=== PATIENT | male | born 1975 | race Caucasian/White ===

== ENCOUNTER 2016-09-13 09:22 | Emergency (ER) | payer MEDICAID ==
[~2016-09-13] VITALS: Ht 157.5 cm; Wt 73.0 kg
[~2016-09-13 09:22] MED LIST: DIGOXIN PO; FOLI-43 PO; FURO-152 PO; OMEP20CA10 PO; ONDA4TAB5 PO; SIMVASTATIN; THIA100T8 PO; WARFARIN PO
[2016-09-13] MEDS ORDERED: ONDANSETRON HCL 4MG/2ML VIAL IV STA (10:53)
[2016-09-13] MEDS ORDERED: VISCOUS LIDOCAINE 2% 15 ML UDC PO STA (10:53)
[2016-09-13] MEDS ORDERED: MAGNESIUM/ALUMINUM HYDROXIDE/SIMETHICONE 30ML UDC PO STA (10:53)
[2016-09-13] MEDS ORDERED: FAMOTIDINE 20MG/2ML VIAL IV ONE (11:00)
[2016-09-13 11:13] LABS: CLARITY URINE CLEAR (CLEAR); COLOR URINE YELLOW (YELLOW); GLUCOSE URINE NEGATIVE (NEGATIVE); KETONES URINE NEGATIVE (NEGATIVE); LEUKOCYTE ESTERASE URINE NEGATIVE (NEGATIVE); NITRITE URINE NEGATIVE (NEGATIVE); OCCULT BLOOD URINE TRACE (NEGATIVE); PROTEIN URINE 2+ (NEGATIVE); SPECIFIC GRAVITY URINE 1.007 (1.005-1.030); UROBILINOGEN URINE 0.2 E.U./dL (0.2-1.0)
[2016-09-13 11:17] LABS: BASOPHILS % 0.6 % (0.0-2.0); EOSINOPHILS % 2.1 % (0.0-5.0); HEMATOCRIT. 43.6 % (42.0-52.0); LYMPHOCYTES % 10.1 % (20.0-50.0); MEAN CORPUSCULAR HEMOGLOBIN 28.3 pg (28.0-32.0); MEAN PLATELET VOLUME 8.6 fl (7.4-10.4); MONOCYTES % 11.7 % (2.0-8.0); NEUTROPHILS % 75.5 % (40.0-76.0); PLATELET 166 x1000/uL (130-400); RED BLOOD CELL COUNT 4.96 mill/uL (4.7-6.1); RED CELL DISTRIBUTION WIDTH 18.1 % (11.6-14.6)
[2016-09-13 11:34] LABS: CARBON DIOXIDE 27 mEq/L (21-32); CHLORIDE 102 mEq/L (98-107); ETHANOL BLOOD < 10 mg/dL
[2016-09-13 11:43] LABS: *AMPHETAMINES SCREEN URINE NEGATIVE (NEGATIVE); *BARBITURATES SCREEN URINE NEGATIVE (NEGATIVE); *BENZODIAZEPINES SCREEN URINE NEGATIVE (NEGATIVE); *COCAINE SCREEN URINE NEGATIVE (NEGATIVE); CANNABINOID URINE SCREEN NEGATIVE (NEGATIVE); METHADONE URINE SCREEN NEGATIVE (NEGATIVE); OPIATES URINE SCREEN NEGATIVE (NEGATIVE); PHENCYCLIDINE URINE SCREEN NEGATIVE (NEGATIVE)
[2016-09-13 13:17] VITALS: BP 108/63
== END 2016-09-13 13:32 | disposition home or self-care (01) ==
LOC: ER 10:22
DX: K29.70 Gastritis, unspecified, without bleeding (principal); R51 Headache; Z89.9 Acquired absence of limb, unspecified; Z79.01 Long term (current) use of anticoagulants
CPT/HCPCS: 36415; 80053; 80305; 81001; 83690; 85025; 96374; 96375; 99284; G0482; J2405; J3490; Z7610

== ENCOUNTER 2016-10-12 09:41 | Emergency (ER) | payer MEDICAID ==
[~2016-10-12] VITALS: Ht 172.7 cm; Wt 75.0 kg
[2016-10-12] MEDS ORDERED: SODIUM CHLORIDE 0.9% 1,000 ML IV ONE (14:42)
[2016-10-12] MEDS ORDERED: MAGNESIUM/ALUMINUM HYDROXIDE/SIMETHICONE 30ML UDC PO STA (14:42)
[2016-10-12] MEDS ORDERED: VISCOUS LIDOCAINE 2% 15 ML UDC PO STA (14:42)
[2016-10-12] MEDS ORDERED: KETOROLAC 30MG/ML VIAL IV STA (14:42)
[2016-10-12 15:37] LABS: CHLORIDE 104 mEq/L (98-107)
[2016-10-12 15:39] LABS: CLARITY URINE CLEAR (CLEAR); COLOR URINE DARK YELLOW (YELLOW); GLUCOSE URINE NEGATIVE (NEGATIVE); INR 2.5; KETONES URINE TRACE (NEGATIVE); LEUKOCYTE ESTERASE URINE TRACE (NEGATIVE); NITRITE URINE NEGATIVE (NEGATIVE); OCCULT BLOOD URINE 2+ (NEGATIVE); PROTEIN URINE 4+ (NEGATIVE); PROTHROMBIN TIME 26.5 sec
[2016-10-12 15:41] LABS: BASOPHILS % 0.9 % (0.0-2.0); CARBON DIOXIDE 24 mEq/L (21-32); EOSINOPHILS % 0.4 % (0.0-5.0); LYMPHOCYTES % 22.1 % (20.0-50.0); MEAN CORPUSCULAR HEMOGLOBIN 28.2 pg (28.0-32.0); MEAN CORPUSCULAR VOLUME 88.6 fL (80.0-94.0); MEAN PLATELET VOLUME 9.2 fl (7.4-10.4); MONOCYTES % 9.8 % (2.0-8.0); NEUTROPHILS % 66.8 % (40.0-76.0); PLATELET 164 x1000/uL (130-400); RED BLOOD CELL COUNT 4.97 mill/uL (4.7-6.1); RED CELL DISTRIBUTION WIDTH 19.8 % (11.6-14.6)
[2016-10-12] MEDS ORDERED: FAMOTIDINE 20MG/2ML VIAL IV ONE (16:45)
[2016-10-12 19:08] VITALS: BP 115/90
== END 2016-10-12 19:28 | disposition home or self-care (01) ==
LOC: ER 13:58
DX: K29.70 Gastritis, unspecified, without bleeding (principal); I10 Essential (primary) hypertension; Z79.01 Long term (current) use of anticoagulants; Z89.612 Acquired absence of left leg above knee; Z89.512 Acquired absence of left leg below knee; Z89.511 Acquired absence of right leg below knee; Z95.0 Presence of cardiac pacemaker
CPT/HCPCS: 36415; 76700; 80053; 81001; 82962; 83690; 85025; 85610; 96361; 96374; 96375; 99285; J1885; J3490; J7030; Z7610

== ENCOUNTER 2017-09-18 09:45 | Inpatient (IN) | payer OTHER, MEDICAID ==
[~2017-09-18] VITALS: Ht 175.3 cm; Wt 64.7 kg
[~2017-09-18 09:45] MED LIST changes: -THIA100T8 PO; +THIA100T88 PO
[2017-09-18] MEDS ORDERED: FAMOTIDINE 20MG/2ML VIAL IV STA (10:02)
[2017-09-18] MEDS ORDERED: ONDANSETRON HCL 4MG/2ML VIAL IV STA (10:02)
[2017-09-18 10:20] LABS: CLARITY URINE CLEAR (CLEAR); COLOR URINE DARK YELLOW (YELLOW); KETONES URINE NEGATIVE (NEGATIVE); LEUKOCYTE ESTERASE URINE NEGATIVE (NEGATIVE); NITRITE URINE NEGATIVE (NEGATIVE); OCCULT BLOOD URINE 2+ (NEGATIVE); PROTEIN URINE 3+ (NEGATIVE); SPECIFIC GRAVITY URINE 1.014 (1.005-1.030)
[2017-09-18 10:22] LABS: BASOPHILS % 1.2 % (0.0-2.0); EOSINOPHILS % 2.4 % (0.0-5.0); HEMATOCRIT. 46.8 % (42.0-52.0); HEMOGLOBIN. 15.2 g/dL (14.0-18.0); LYMPHOCYTES % 23.6 % (20.0-50.0); MEAN CORPUSCULAR HEMOGLOBIN 30.8 pg (28.0-32.0); MEAN CORPUSCULAR VOLUME 94.7 fL (80.0-94.0); MEAN PLATELET VOLUME 8.8 fl (7.4-10.4); MONOCYTES % 8.8 % (2.0-8.0); PLATELET 154 x1000/uL (130-400); RED BLOOD CELL COUNT 4.94 mill/uL (4.7-6.1); RED CELL DISTRIBUTION WIDTH 24.1 % (11.6-14.6)
[2017-09-18 10:28] LABS: CHLORIDE 99 mEq/L (98-107)
[2017-09-18 10:36] LABS: PARTIAL THROMBOPLASTIN TIME 35.2 sec (23.4-31.0); PROTHROMBIN TIME 52.3 sec (9.4-11.6)
[2017-09-18 11:09] LABS: PLATELET ESTIMATE NORMAL
[2017-09-18] MEDS ORDERED: FUROSEMIDE 40MG/4ML VIAL IVP NR (13:15)
[2017-09-18 14:40] VITALS: BP 116/68
[2017-09-18 15:03] VITALS: BP 113/76
[2017-09-18] MEDS ORDERED: GUAIFENESIN 200MG/10ML SUGAR FREE UDC PO PRN (15:15)
[2017-09-18] MEDS ORDERED: DOCUSATE SODIUM 100MG CAPSULE PO PRN (15:15)
[2017-09-18] MEDS ORDERED: HYDROCODONE/ACETAMINOPHEN 5/325MG TABLET PO PRN (15:15)
[2017-09-18] MEDS ORDERED: FUROSEMIDE 40MG/4ML VIAL IV SCH (15:15)
[2017-09-18] MEDS ORDERED: CLONIDINE 0.1MG TABLET PO PRN (15:15)
[2017-09-18] MEDS ORDERED: ACETAMINOPHEN 325MG TABLET PO PRN (15:15)
[2017-09-18 16:00] VITALS: BP 104/66
[2017-09-18 18:00] VITALS: BP 116/76
[2017-09-18 20:00] VITALS: BP 121/80
[2017-09-18] MEDS: MORPHINE SULFATE 4 MG/ML CPJ (NOT FOR IM USE) IV PRN (20:43)
[2017-09-18] MEDS: CARVEDILOL 3.125 MG TABLET PO SCH (20:44)
[2017-09-18 22:00] VITALS: BP 117/72
[2017-09-18] MEDS: ONDANSETRON HCL 4MG/2ML VIAL IV PRN (23:32)
[2017-09-19] VITALS (13 sets, daily range): BP systolic 98–127; BP diastolic 58–92
[2017-09-19 08:07] LABS: BASOPHILS % 1.1 % (0.0-2.0); EOSINOPHILS % 3.2 % (0.0-5.0); HEMATOCRIT. 42.9 % (42.0-52.0); LYMPHOCYTES % 31.9 % (20.0-50.0); MEAN CORPUSCULAR HEMOGLOBIN 30.9 pg (28.0-32.0); MEAN CORPUSCULAR VOLUME 94.8 fL (80.0-94.0); MEAN PLATELET VOLUME 9.4 fl (7.4-10.4); MONOCYTES % 11.7 % (2.0-8.0); NEUTROPHILS % 52.1 % (40.0-76.0); PLATELET 151 x1000/uL (130-400); RED BLOOD CELL COUNT 4.53 mill/uL (4.7-6.1); RED CELL DISTRIBUTION WIDTH 23.5 % (11.6-14.6)
[2017-09-19 08:12] LABS: PROTHROMBIN TIME 42.1 sec (9.4-11.6)
[2017-09-19] MEDS: MORPHINE SULFATE 4 MG/ML CPJ (NOT FOR IM USE) IV PRN (08:34)
[2017-09-19 08:38] LABS: CHLORIDE 99 mEq/L (98-107)
[2017-09-19 08:54] LABS: HDL CHOLESTEROL 35 mg/dL (40-59)
[2017-09-19] MEDS: CARVEDILOL 3.125 MG TABLET PO SCH ×2 (09:00→21:57)
[2017-09-19 09:10] LABS: LDL CHOLESTEROL 59 mg/dL (5-100)
[2017-09-19] MEDS: ONDANSETRON HCL 4MG/2ML VIAL IV PRN (11:34)
[2017-09-19] MEDS: FUROSEMIDE 40MG/4ML VIAL IVP SCH (11:34)
[2017-09-20] VITALS (9 sets, daily range): BP systolic 101–129; BP diastolic 65–98
[2017-09-20 06:15] LABS: EOSINOPHILS % 3.4 % (0.0-5.0); HEMATOCRIT. 44.2 % (42.0-52.0); HEMOGLOBIN. 14.4 g/dL (14.0-18.0); LYMPHOCYTES % 34.5 % (20.0-50.0); MEAN CORPUSCULAR HEMOGLOBIN 30.9 pg (28.0-32.0); MEAN CORPUSCULAR VOLUME 94.4 fL (80.0-94.0); MEAN PLATELET VOLUME 9.2 fl (7.4-10.4); MONOCYTES % 11.1 % (2.0-8.0); PLATELET 148 x1000/uL (130-400); RED BLOOD CELL COUNT 4.68 mill/uL (4.7-6.1); RED CELL DISTRIBUTION WIDTH 23.5 % (11.6-14.6)
[2017-09-20 06:17] LABS: CHLORIDE 99 mEq/L (98-107)
[2017-09-20] MEDS: CARVEDILOL 3.125 MG TABLET PO SCH (08:02)
[2017-09-20] MEDS: FUROSEMIDE 40MG/4ML VIAL IVP SCH (08:02)
[2017-09-20 14:41] LABS: INR 2.7; PROTHROMBIN TIME 28.1 sec (9.4-11.6)
== END 2017-09-20 14:15 | disposition home or self-care (01) | DRG 194 ==
LOC: ER 09:45 → 3WST 11:34 → EDBEDREQ 11:44 → EDBEDREQTM 11:44 → ENRESERV 12:11
PROVIDERS: ADMIT Hospitalist; ATTEND Hospitalist
DX: I11.0 Hypertensive heart disease with heart failure (principal); D68.9 Coagulation defect, unspecified; I31.3 Pericardial effusion (noninflammatory); E44.0 Moderate protein-calorie malnutrition; I42.0 Dilated cardiomyopathy; I48.2 Chronic atrial fibrillation; R11.2 Nausea with vomiting, unspecified; I50.23 Acute on chronic systolic (congestive) heart failure; R19.7 Diarrhea, unspecified; R10.9 Unspecified abdominal pain; Z82.49 Family history of ischemic heart disease and other diseases of the circulatory system; Z95.0 Presence of cardiac pacemaker; Z89.519 Acquired absence of unspecified leg below knee; Z79.01 Long term (current) use of anticoagulants; Z79.899 Other long term (current) drug therapy; Z95.810 Presence of automatic (implantable) cardiac defibrillator
CPT/HCPCS: 36415; 71045; 74176; 80048; 80053; 80061; 80162; 81003; 83690; 83880; 84484; 85025; 85610; 85730; 93005; 93306; 96374; 96375; 99291; J1940; J2270; J2405; J3490; J7030